=== PATIENT | male | born 1990 | race Two or more races ===

== ENCOUNTER 2020-07-02 17:07 | Emergency (ER) | payer OTHER ==
[~2020-07-02] VITALS: Ht 172.7 cm; Wt 63.6 kg
[2020-07-02 17:34] VITALS: Ht 172.7 cm; Wt 63.6 kg
[2020-07-02] MEDS ORDERED: BACLOFEN20 M1 PO (18:30)
[2020-07-02] MEDS ORDERED: VOLTAREN75 MG PO (18:30)
[2020-07-02 19:59] VITALS: BP 141/79
== END 2020-07-02 19:59 | disposition home or self-care (01) ==
LOC: D.ER 17:07
DX: M54.12 Radiculopathy, cervical region (principal); S16.1XXA Strain of muscle, fascia and tendon at neck level, initial encounter; V89.2XXA Person injured in unspecified motor-vehicle accident, traffic, initial encounter; M62.838 Other muscle spasm